=== PATIENT | female | born 1990 | race Two or more races ===

== ENCOUNTER 2025-01-12 10:55 | Outpatient (CLI) | payer OTHER | END 2025-01-12 10:58 | disposition home or self-care (01) | LOC: PRENATAL 10:55 | PROVIDERS: ATTEND Obstetrics & Gynecology Maternal & Fetal Medicine | DX: O44.00 Complete placenta previa NOS or without hemorrhage, unspecified trimester (principal); O34.40 Maternal care for other abnormalities of cervix, unspecified trimester; Z3A.20 20 weeks gestation of pregnancy ==

== ENCOUNTER → 2025-03-17 08:32 | Outpatient (CLI) | payer OTHER | END | disposition home or self-care (01) | LOC: PRENATAL 08:32 | PROVIDERS: ATTEND Obstetrics & Gynecology Maternal & Fetal Medicine | DX: O26.849 Uterine size-date discrepancy, unspecified trimester (principal); O36.8199 Decreased fetal movements, unspecified trimester, other fetus; O34.40 Maternal care for other abnormalities of cervix, unspecified trimester; Z3A.30 30 weeks gestation of pregnancy ==

== ENCOUNTER 2025-04-26 08:42 | Outpatient (CLI) | payer OTHER | END 2025-04-26 08:43 | disposition home or self-care (01) | LOC: PRENATAL 08:42 | PROVIDERS: ATTEND General Practice | DX: O26.849 Uterine size-date discrepancy, unspecified trimester (principal); O36.8199 Decreased fetal movements, unspecified trimester, other fetus; O34.40 Maternal care for other abnormalities of cervix, unspecified trimester; Z3A.36 36 weeks gestation of pregnancy ==

== ENCOUNTER 2025-05-05 15:21 | Outpatient (CLI) | payer OTHER | END 2025-05-05 16:27 | disposition home or self-care (01) | LOC: NST 15:21 | PROVIDERS: ATTEND General Practice | DX: Z34.83 Encounter for supervision of other normal pregnancy, third trimester (principal) ==

== ENCOUNTER 2025-06-03 12:17 | Outpatient (CLI) | payer OTHER ==
[2025-06-03 12:47] VITALS: BP 105/72; O2SAT 97
[2025-06-03 13:30] VITALS: BP 105/72
[2025-06-03] MEDS ORDERED: PRENATAL TABLE1 EAC1 PO (14:33)
[2025-06-03] MEDS ORDERED: WELLBUTRIN SR150 MG PO (14:38)
[2025-06-03] MEDS ORDERED: PROZAC20 MG PO (14:38)
[2025-06-03 15:50] VITALS: BP 110/75
[2025-06-03 17:04] VITALS: BP 110/75
== END 2025-06-03 17:12 | disposition home or self-care (01) ==
LOC: NST 12:17 → OBS/DEL 12:17
PROVIDERS: ATTEND General Practice
DX: O26.893 Other specified pregnancy related conditions, third trimester (principal); O26.849 Uterine size-date discrepancy, unspecified trimester; O36.8199 Decreased fetal movements, unspecified trimester, other fetus; Z3A.40 40 weeks gestation of pregnancy

== ENCOUNTER 2025-06-05 14:23 | Inpatient (IN) | payer OTHER ==
[2025-05-20 15:36] LABS: BASO % 0.2 % (0.1-1.2); EOS # 0.22 (0.04-0.54); EOS % 2.5 % (0.7-7.0); LYMPH # 2.14 (1.18-3.74); LYMPH % 24.7 % (19.3-53.1); MEAN PLATELET VOLUME 12.00 fl (9.4-12.4); MONO # 0.65 (0.24-0.82); MONO % 7.5 % (4.7-12.5); NEUT # 5.58 (1.56-6.13); NEUT % 64.6 % (34.0-71.1); RED CELL DISTRIBUTION WIDTH 12.9 % (11.6-14.4)
[2025-05-20 16:00] LABS: INR 0.94
[2025-05-20 16:07] LABS: ALT/SGPT 13.0 U/L (12-78); AST/SGOT 16.0 U/L (15-37); BILIRUBIN TOTAL 0.38 mg/dL (0.3-1.2); BUN CREA RATIO 17.0 (7.0-25.0); CREATININE SERUM 0.52 mg/dL (0.55-1.02); GFR 134.98; GLOBULINA 3.5 G/DL (2.4-3.5); GLUCOSE FASTING 89.0 mg/dL (65-100); OSMOLALITY SERUM 279.0 MOSM/KG (275-295)
[~2025-06-05] VITALS: Ht 167.6 cm; Wt 85.3 kg
[~2025-06-05 14:23] MED LIST: PRENATAL TABLE1 EAC1 PO; PROZAC20 MG PO; WELLBUTRIN SR150 MG PO
[2025-06-07 10:26] VITALS: BP 110/77
[2025-06-07] MEDS ORDERED: AMPICILLIN SODIUM 2,000 MG VIAL IV ONE (11:00)
[2025-06-07] MEDS ORDERED: RINGERS SOLUTION,LACTATED 1,000 ML IV SCH (11:30)
[2025-06-07 11:54] LABS: BASO % 0.2 % (0.1-1.2); EOS # 0.13 (0.04-0.54); EOS % 1.4 % (0.7-7.0); LYMPH # 2.06 (1.18-3.74); LYMPH % 22.9 % (19.3-53.1); MEAN PLATELET VOLUME 12.30 fl (9.4-12.4); MONO # 0.71 (0.24-0.82); MONO % 7.9 % (4.7-12.5); NEUT # 6.02 (1.56-6.13); NEUT % 67.2 % (34.0-71.1); RED CELL DISTRIBUTION WIDTH 12.7 % (11.6-14.4)
[2025-06-07 12:29] LABS: INR < 0.93
[2025-06-07 12:44] LABS: ALT/SGPT 15.0 U/L (12-78); AST/SGOT 21.0 U/L (15-37); BILIRUBIN TOTAL 0.45 mg/dL (0.3-1.2); BUN CREA RATIO 14.0 (7.0-25.0); CREATININE SERUM 0.58 mg/dL (0.55-1.02); GFR 119.0; GLOBULINA 3.5 G/DL (2.4-3.5); GLUCOSE FASTING 71.0 mg/dL (65-100); OSMOLALITY SERUM 276.0 MOSM/KG (275-295)
[2025-06-07 15:38] VITALS: BP 95/57
[2025-06-07] MEDS ORDERED: AMPICILLIN SODIUM 1,000 MG VIAL IV SCH (16:00)
[2025-06-07] MEDS ORDERED: MISOPROSTOL 25 MCG/4 ML GEL.W.APPL VAG ONE (17:30)
[2025-06-07 19:54] VITALS: BP 107/65
[2025-06-07 23:24] VITALS: BP 99/55
[2025-06-08 03:00] VITALS: BP 128/82
[2025-06-08 04:36] VITALS: BP 133/78
[2025-06-08] MEDS ORDERED: MORPHINE SULFATE 4 MG/ML VIAL IV ONE (04:45)
[2025-06-08 07:25] VITALS: BP 104/87
[2025-06-08 11:35] VITALS: BP 102/58
[2025-06-08] MEDS ORDERED: CEFAZOLIN SODIUM 1,000 MG VIAL IV ONE (14:15)
[2025-06-08] MEDS ORDERED: CHLORHEXIDINE GLUCONATE 120 ML BOTTLE TOP ONE (16:30)
[2025-06-08] MEDS ORDERED: OXYTOCIN 1,000 ML IV SCH (16:30)
[2025-06-08] MEDS ORDERED: LIDOCAINE HCL 1% 10ML VIAL IJ ONE (16:45)
[2025-06-08] MEDS ORDERED: BENZOCAINE/MENTHOL 90 ML BOTTLE TOP SCH (17:00)
[2025-06-08] MEDS ORDERED: DOCUSATE SODIUM 100MG CAP PO SCH (17:00)
[2025-06-08 21:08] VITALS: BP 124/78
[2025-06-09] VITALS: BP 109/69
[2025-06-09 08:53] VITALS: BP 103/66
[2025-06-09 11:37] LABS: BASO % 0.2 % (0.1-1.2); EOS # 0.05 (0.04-0.54); EOS % 0.4 % (0.7-7.0); LYMPH # 2.44 (1.18-3.74); LYMPH % 18.5 % (19.3-53.1); MEAN PLATELET VOLUME 12.30 fl (9.4-12.4); MONO # 0.82 (0.24-0.82); MONO % 6.2 % (4.7-12.5); NEUT # 9.82 (1.56-6.13); NEUT % 74.3 % (34.0-71.1); RED CELL DISTRIBUTION WIDTH 13.0 % (11.6-14.4)
[2025-06-09 17:39] VITALS: BP 94/63
[2025-06-10 00:33] VITALS: BP 102/66
[2025-06-10 08:00] VITALS: BP 112/74
== END 2025-06-10 13:23 | disposition home or self-care (01) | DRG 807 ==
LOC: OB/GYN 14:23 → LDR 06-07 10:12 → OB/GYN 06-08 17:12
PROVIDERS: Student in an Organized Health Care Education/Training Program; ADMIT General Practice; ATTEND General Practice
PROC: 4A1HXCZ Monitoring of Products of Conception, Cardiac Rate, External Approach (ICD-10-PCS; 2025-06-07)
PROC: 3E0P7VZ Introduction of Hormone into Female Reproductive, Via Natural or Artificial Opening (ICD-10-PCS; 2025-06-07)
PROC: BY4FZZZ Ultrasonography of Third Trimester, Single Fetus (ICD-10-PCS; 2025-06-07)
PROC: 10E0XZZ Delivery of Products of Conception, External Approach (ICD-10-PCS; principal; 2025-06-08)
PROC: 0KQM0ZZ Repair Perineum Muscle, Open Approach (ICD-10-PCS; 2025-06-08)
PROC: 3E033VJ Introduction of Other Hormone into Peripheral Vein, Percutaneous Approach (ICD-10-PCS; 2025-06-08)
DX: O70.1 Second degree perineal laceration during delivery (principal); Z37.0 Single live birth; O36.8130 Decreased fetal movements, third trimester, not applicable or unspecified; O48.0 Post-term pregnancy; O36.63X0 Maternal care for excessive fetal growth, third trimester, not applicable or unspecified; Z3A.40 40 weeks gestation of pregnancy

== ENCOUNTER 2025-10-07 05:19 | Emergency (ER) | payer OTHER ==
[~2025-10-07] VITALS: Ht 167.6 cm; Wt 63.5 kg
[2025-10-07] MEDS ORDERED: KETOROLAC TROMETHAMINE 30 MG VIAL IV STA (06:25)
[2025-10-07] MEDS ORDERED: CEFTRIAXONE SODIUM 1,000 MG VIAL IV STA (06:25)
[2025-10-07] MEDS ORDERED: KETOROLAC TROMETHAMINE 30 MG VIAL ONE (06:30)
[2025-10-07] MEDS ORDERED: CEFTRIAXONE SODIUM 1,000 MG VIAL ONE (06:30)
[2025-10-07 07:22] LABS: BASO % 0.2 % (0.1-1.2); EOS # 0.03 (0.04-0.54); EOS % 0.3 % (0.7-7.0); LYMPH # 0.83 (1.18-3.74); LYMPH % 8.9 % (19.3-53.1); MEAN PLATELET VOLUME 10.60 fl (9.4-12.4); MONO # 0.55 (0.24-0.82); MONO % 5.9 % (4.7-12.5); NEUT # 7.88 (1.56-6.13); NEUT % 84.4 % (34.0-71.1); RED CELL DISTRIBUTION WIDTH 12.3 % (11.6-14.4)
[2025-10-07 08:04] LABS: BUN CREA RATIO 33.0 (7.0-25.0); CREATININE SERUM 0.64 mg/dL (0.55-1.02); GFR 106.22; GLUCOSE FASTING 79.0 mg/dL (65-100); OSMOLALITY SERUM 279.0 MOSM/KG (275-295)
[2025-10-07] MEDS ORDERED: AMOX-CLAV 875-1 EACH PO (10:06)
== END 2025-10-07 11:42 | disposition home or self-care (01) ==
LOC: ER 05:20
PROVIDERS: General Practice
DX: N61.0 Mastitis without abscess (principal)